=== PATIENT | female | born 1965 | race Caucasian/White ===

== ENCOUNTER 2019-07-15 03:28 | Inpatient (IN) | payer OTHER ==
[~2019-07-15] VITALS: Ht 152.4 cm; Wt 71.5 kg
[2019-07-15 03:58] LABS: BASO % 0.5 % (0.0-2.0); EOS # 0.2 (0.0-0.7); EOS % 3.2 % (0-4.0); GRAN # 3.8 (1.4-6.5); GRAN % 57.1 % (42.2-75.2); HEMATOCRIT 41.8 % (37.0-47.0); HEMOGLOBIN 13.7 g/dl (12.5-16.0); LYMPH # 2.2 (1.2-3.4); LYMPH % 32.5 % (20.0-51.0); MEAN CELL VOLUME 94 fl (80.0-100.0); MEAN CORPUSCULAR HEMOGLOBIN 31 pg (27.0-31.0); MEAN CORPUSCULAR HGB CONC 33 g/dl (33.0-37.0); MEAN PLATELET VOLUME 10.4 fl (7.4-10.4); MONO # 0.4 (0.1-0.6); MONO % 6.2 % (1.7-9.3); PLATELET COUNT 182 K/mm3 (130-400); RED BLOOD COUNT 4.47 M/mm3 (4.10-5.30); REDCELL DISTRIBUTION WIDTH-CV 12.8 % (11.5-14.5)
[2019-07-15 04:03] LABS: INR 0.9 (0.8-3.0); PROTHROMBIN TIME 10.5 SECONDS (9.7-12.8)
[2019-07-15 04:06] LABS: PARTIAL THROMBOPLASTIN TIME 31.7 SECONDS (26.0-37.0)
[2019-07-15 04:09] LABS: ALBUMIN 4.1 gm/dL (3.5-5.0); BILIRUBIN,TOTAL 0.3 mg/dL (0.0-1.0); CALCIUM 8.4 mg/dL (8.4-10.2); CREATININE, serum 0.58 (0.52-1.25); POTASSIUM 4.1 mmol/L (3.4-5.0); TOTAL PROTEIN 7.1 gm/dL (6.4-8.2)
[2019-07-15 07:42] VITALS: BP 116/70; PULSE 76; TEMP 98
--- NOTE | 2019-07-15 07:51 | NUR ---
Patient up from ER. Spouse at bedside. Notified hospitalist. Patient oriented to room.
--- NOTE | 2019-07-15 10:04 | NUR ---
CHINYERE met with the patient and the patient's , Reji ([phone]), to discuss discharge plan. The patient was sleeping. The patient lives in [place] with her . Reji reports that the patient is independent with ADLs and does not have any DME. The patient's PCP is Dr. Tejada at [facility] and she also receives her medications at [facility]. Reji reports no difficulties obtaining her meds. The patient does not have advanced directives and they were not interested in completing them at this time. The patient plans to return home with her upon discharge. No additional needs at this time.
[2019-07-15 11:44] VITALS: BP 98/74; PULSE 93; TEMP 98.6
--- NOTE | 2019-07-15 12:14 | NUR ---
First visit from the program coordinator for residence life. No needs right now.
[2019-07-15 16:05] VITALS: BP 129/54; PULSE 89; TEMP 98.5
--- NOTE | 2019-07-15 18:59 | NUR ---
Patient has done well throughout the day. Has requested pain medication for LLE pain, meds given per orders. IV fluids infusing per orders. Denies further needs at this time. Reported off to shift leader.
--- NOTE | 2019-07-15 19:30 | NUR ---
Report received, assumed care for nightman. A&Ox3-drowsy. Assessment complete. VS stable. Right AC IV with LR@150mls/hr. Neuros WNL. Denies pain/nausea/shortness of breath. Left lower extremity with splint/neetu-elevated on pillows. Fresh ice pack applied. López hose applied to right lower ext. SCD applied. Instructed NPO after midnight in prep for surgery. Verbalizes understanding. Denies questions/concerns. Call light in reach. Will monitor.
[2019-07-15 19:45] VITALS: BP 122/61; PULSE 99; TEMP 98.5
[2019-07-15 23:48] VITALS: BP 136/65; PULSE 80; TEMP 98.5
[2019-07-16] VITALS (8 sets, daily range): BP systolic 105–146; BP diastolic 46–67; PULSE 68–86; TEMP 97.8–98.5
--- NOTE | 2019-07-16 01:00 | NUR ---
SPO2 rechecked due to being 89% on room air. Noted to have finger nail nepali on-removed- turn/cough/deep breathe. O2 maintaining at 94% on room air. Encouraged to continue to deep breathe. Verbalizes understanding. Call light in reach. Will monitor.
--- NOTE | 2019-07-16 04:22 | NUR ---
Rested well this shift. Received IV dilauid with adequate pain control. Denied nausea/shortness of breath. VS have remained stable. SHERYL/SCD to right lower extremity. IV to right AC fluids infusing LR@75ml/hr. Splint to left lower extremity-neetu/gauze-CDI. Has been NPO since midnight for surgery today. Call light in reach. Will monitor .
[2019-07-16 06:12] LABS: BASO % 0.3 % (0.0-2.0); EOS # 0.1 (0.0-0.7); EOS % 0.8 % (0-4.0); GRAN # 6.9 (1.4-6.5); GRAN % 71.9 % (42.2-75.2); HEMATOCRIT 39.6 % (37.0-47.0); HEMOGLOBIN 13.1 g/dl (12.5-16.0); LYMPH # 1.7 (1.2-3.4); LYMPH % 17.4 % (20.0-51.0); MEAN CELL VOLUME 94 fl (80.0-100.0); MEAN CORPUSCULAR HEMOGLOBIN 31 pg (27.0-31.0); MEAN CORPUSCULAR HGB CONC 33 g/dl (33.0-37.0); MEAN PLATELET VOLUME 11.1 fl (7.4-10.4); MONO # 0.9 (0.1-0.6); MONO % 9.1 % (1.7-9.3); PLATELET COUNT 174 K/mm3 (130-400); RED BLOOD COUNT 4.23 M/mm3 (4.10-5.30); REDCELL DISTRIBUTION WIDTH-CV 12.8 % (11.5-14.5)
[2019-07-16 06:27] LABS: CALCIUM 8.5 mg/dL (8.4-10.2); CREATININE, serum 0.64 (0.52-1.25); POTASSIUM 4.1 mmol/L (3.4-5.0)
--- NOTE | 2019-07-16 06:52 | NUR ---
Report to PAT Shah
--- NOTE | 2019-07-16 07:56 | NUR ---
Assessment completed, alert/oriented, vital signs stable, reports pain moderated 5/10 to left ankle, pain meds given upon patient requiested, splint/wrap in place to left lower leg, patient is has good cap refill and is able to wiggle her toes, denies numbness or tingling, distal pulses are palpable, scheduled for surgery at 1200, consent is signed, patient is NPO, denies other needs at at this time
[2019-07-16] MEDS ORDERED: ROXICODONE 55 MG/TAB PO (11:57)
[2019-07-16] MEDS ORDERED: ASPI325T6 PO (11:57)
--- NOTE | 2019-07-16 14:28 | NUR ---
Patient doing well post operatively , alert/oriented, vital signs stable, denies pain/ patient has Popliteal block, toes are pink and have good capillary refill, she is eating and drinking, present at bedside, will continue to monitor
--- NOTE | 2019-07-16 15:37 | NUR ---
Patient continues to do well post-op, alert/oriented, vital signs stable, pain controlled
--- NOTE | 2019-07-16 21:50 | NUR ---
Pt. sitting up in bed at this time. Pt. is A&OX3, assessment complete. INT to rt. ac patent. Dressing to LT. leg CDI. Pt. denies pain or other needs, call light within reach.
[2019-07-17 00:34] VITALS: BP 118/56; PULSE 63; TEMP 97.9
[2019-07-17 04:00] VITALS: BP 126/70; PULSE 55; TEMP 98.1
[2019-07-17 07:19] VITALS: BP 118/56; PULSE 83; TEMP 97.7
--- NOTE | 2019-07-17 09:33 | NUR ---
Patient resting in bed. Really wanting to get discharged home. Iv antibioitics completed. Left Lower extremity block still working. Numbness noted. Left leg swollen, stressed the importance of ice & elevation. Patient have been voiding & using walker non weight bearing to LLe. Will monitor
[2019-07-17 10:59] VITALS: BP 116/60; PULSE 93; TEMP 97.4
--- NOTE | 2019-07-17 11:22 | NUR ---
PT is recommending a FWW and knee walker for the patient. CHINYERE contacted Uyen, at [facility], to inquire if will cover the two equipment. Uyen, at [facility], reports that will, but that she would just to need get auth from them. CHINYERE then met with with the patient and her to inform her of the DME companies and of 's coverage. The patient and her chose to get both the FWW and knee walker from [facility]. CHINYERE contacted and faxed the order to Uyen at [facility]. Awaiting delivery of equipment.
--- NOTE | 2019-07-17 12:12 | NUR ---
Patient ready for discharge. Hospitalist rounded & orders obtained. Patient anxious to leave. We reviewed all discharge instructions. Stressed ice & elevation. Importance of non weight bearing status & keeping splint clean & dry. Script for Oxicodone sent with patient & ASA for DVT prevention. Patient spouse here to take her home. Patient wheeled out with all belongigns. denies questions or cocnerns.
--- NOTE | 2019-07-17 13:54 | NUR ---
The patient and the patient's decided to fruit picker the equipment at [facility] instead of having it delivered. CHINYERE followed up with Uyen at [facility]. Uyen reports that the patient and her picked up the walker from them. She states that the patient was going to be getting a knee walker from a friend. No additional needs at this time.
== END 2019-07-17 12:14 | disposition home or self-care (01) | DRG 494 ==
LOC: COL.ER 03:28 → SURG 06:41
PROVIDERS: Emergency Medicine; Orthopaedic Surgery Sports Medicine; ADMIT Hospitalist
PROC: 0MQR0ZZ Repair Left Ankle Bursa and Ligament, Open Approach (ICD-10-PCS; 2019-07-16)
PROC: 0QSK04Z Reposition Left Fibula with Internal Fixation Device, Open Approach (ICD-10-PCS; principal; 2019-07-16 12:00)
DX: S82.62XB Displaced fracture of lateral malleolus of left fibula, initial encounter for open fracture type I or II (principal); F17.210 Nicotine dependence, cigarettes, uncomplicated; F10.129 Alcohol abuse with intoxication, unspecified; Y90.8 Blood alcohol level of 240 mg/100 ml or more; W01.0XXA Fall on same level from slipping, tripping and stumbling without subsequent striking against object, initial encounter; Y93.9 Activity, unspecified
CPT/HCPCS: OP; 99222-AI; 99231-AI; 99239; A9284; C1713; J0690; J1100; J1170; J1885; J2250; J2405; J2704; J2795; J3010; J7030; J7120; Q4045